=== PATIENT | female | born 1970 | race Caucasian/White ===

== ENCOUNTER → 2020-08-21 | Outpatient (CLI) | payer OTHER ==
--- NOTE | 2020-08-21 18:49 | RAD ---
EXAM: XR HUMERUS_LT 2 VIEWS, XR SHOULDER_LEFT 2+ VIEWS 08/21/2020 6:26 PM CLINICAL INDICATION: Left shoulder and humerus pain for 4 days, no injury COMPARISON: None TECHNIQUE: 3 views of the left shoulder, 2 views of the left shoulder. FINDINGS: Left shoulder: There is a large amount of calcific tendinitis in the supraspinatus and infraspinatus tendons. There is no acute fracture or dislocation. Glenohumeral acromioclavicular joints are normal. Left humerus: Calcific tendinitis in the rotator cuff as above. No acute fracture or dislocation. IMPRESSION: 1. Calcific tendinitis in the supraspinatus and infraspinatus tendons. 2. No acute osseous abnormality. Electronically signed by: Yamila Fischer MD (08/21/2020 6:47 PM) [id number]
== END ==
LOC: RAD 18:18
PROVIDERS: ATTEND Nurse Practitioner Family
DX: M75.32 Calcific tendinitis of left shoulder (principal)
CPT/HCPCS: 73030; 73060